=== PATIENT | male | born 1960 | race Two or more races ===

== ENCOUNTER 2024-01-02 14:16 | Inpatient (IN) | payer OTHER, MEDICAID ==
[~2024-01-02] VITALS: Ht 170.2 cm; Wt 61.6 kg
[2024-01-02] VITALS (24 sets, daily range): BP systolic 71–105; BP diastolic 34–66; PULSE 15–126; RESP 11–28; TEMP 93.3–95.2; O2SAT 94–100
[2024-01-02] MEDS ORDERED: EPINEPHrine HCL 1 MG/10 ML SYRG ONE (14:21)
[2024-01-02] MEDS ORDERED: NOREPINEPHRINE 8 MG/250ML KIT 250 ML IV ONE (14:22)
[2024-01-02] MEDS: SODIUM BICARB 8.4% 50Meq/50ml SYR INJ ONE (14:42)
[2024-01-02] MEDS: PANTOPRAZOLE 40 MG/10 ML VIAL INJ IV ONE (14:45)
[2024-01-02] MEDS: SODIUM BICARB 8.4% 50Meq/50ml SYR Vial IV ONE ×3 (14:56→21:04)
[2024-01-02] MEDS: NOREPINEPHRINE 8 MG/250ML KIT 250 ML IV SCH ×2 (15:00→21:00)
[2024-01-02 15:02] LABS: Basophils # (auto) 0 10 ^3/uL (0-0.2); Basophils % (auto) 0.1 % (0.0-2.0); Eosinophils # (auto) 0 10 ^3/uL (0-0.8); Eosinophils % (auto) 0.1 % (0.0-7.0); Nucleated Red Blood Cells % 0.1 %
[2024-01-02 15:03] LABS: Hematocrit 45.9 % (41.0-53.0); Hemoglobin 13.2 g/dL (13.5-17.5); Lymphocytes # (auto) 2.3 10 ^3/uL (0.4-5.4); Lymphocytes % (auto) 9.6 % (10.0-50.0); Mean Corpuscular Hemoglobin 30.8 pg (28.0-32.0); Mean Corpuscular Hgb Conc. 28.9 g/dL (32.0-36.0); Mean Corpuscular Volume 106.6 fL (80.0-100.0); Monocytes # (auto) 1.4 10 ^3/uL (0-1.3); Monocytes % (auto) 5.9 % (0.0-12.0); Neutrophils # (auto) 20.2 10 ^3/uL (1.6-8.6); Neutrophils % (auto) 84.3 % (37.0-80.0); Red Cell Distribution Width 15.4 % (11.8-14.3)
[2024-01-02] MEDS: ASPirin 325 MG TAB ONE (15:08)
[2024-01-02 15:12] LABS: Base Excess -20.3 mmol/L (-2.0-2.0)
[2024-01-02 15:12] LABS: Albumin 3.2 g/dL (3.2-4.8); Alkaline Phosphatase 167 U/L (46-116); Anion Gap 23 (5-15); BUN/Creatinine Ratio 27.6 (10.0-20.0); Blood Urea Nitrogen 64 mg/dL (9-23); Calcium 12.6 mg/dL (8.5-10.1); Carbon Dioxide 12 mmol/L (20-30); Chloride 100 mmol/L (98-107); Glucose 306 mg/dL (74-106); Potassium 5.5 mmol/L (3.5-5.1); Sodium 135 mmol/L (136-145); Total Protein 5.6 g/dL (5.7-8.2)
[2024-01-02 15:24] LABS: Aspartate Aminotransferase 3394 U/L (13-40)
[2024-01-02 15:27] LABS: Alanine Aminotransferase 1903 U/L (7-40)
[2024-01-02] MEDS: PHENYLEPHRINE IV 250 ML IV ONE (15:47)
[2024-01-02] MEDS: PHENYLEPHRINE IV 250 ML IV SCH ×2 (16:00→21:00)
[2024-01-02] MEDS: ASPirin 325 MG TAB NG ONE (16:00)
[2024-01-02] MEDS ORDERED: DOCUSATE SOD 100 MG CAP PO PRN (16:30)
[2024-01-02] MEDS ORDERED: SODIUM CHLORIDE 0.9% 1,000 ML IV SCH (16:30)
[2024-01-02] MEDS ORDERED: DEXTROSE (50%) 50ML SYRG IV PRN (16:30)
[2024-01-02] MEDS ORDERED: VANCOMYCIN PER PHARMACY 0 MG IV SCH (16:30)
[2024-01-02] MEDS ORDERED: ONDANSETRON HCL 4 MG/2 ML VIAL IV PRN (16:30)
[2024-01-02] MEDS: CEFEPIME 2GM/50ML NS 50 ML IV ONE (16:30)
[2024-01-02 16:34] LABS: INR 1.79 (0.9-1.15); Partial Thromboplastin Time 52.5 SEC (24.5-34.5); Prothrombin Time 18.2 sec (9.3-11.8)
[2024-01-02] MEDS: fentaNYL Drip 2500mCg/250mlNS 250 ML IV ONE (17:27)
[2024-01-02] MEDS: ACCU-CHEK COMFORT CURVE STRIP VI SCH (18:00)
[2024-01-02] MEDS: InsuLIN REG 1unit/0.01ml Soln (100units/ml) SC SCH (18:00)
[2024-01-02] MEDS: IODIXANOL 320MG/ML 100ML BTL IV ONE (18:12)
[2024-01-02 18:17] LABS: Lactic Acid w/Reflex 19.6 mmol/L (0.4-2.0)
[2024-01-02] MEDS: NOREPINEPHRINE 8 MG/250ML KIT 250 ML IV ONE (19:19)
[2024-01-02 19:20] LABS: Base Excess -23.8 mmol/L (-2.0-2.0)
[2024-01-02] MEDS: EPINEPHrine HCL 250 ML IV ONE (20:08)
[2024-01-02] MEDS: VASOPRESSIN 20 UNITS in SODIUM CHL 0.9% 99 ML IV SCH (21:00)
[2024-01-02] MEDS: fentaNYL Drip 2500mCg/250mlNS 250 ML IV SCH (21:00)
[2024-01-02] MEDS: VANCOMYCIN 1GM/200ML 200 ML IV ONE (21:02)
[2024-01-02] MEDS: SODIUM BICARB 50mEq/50ml Vial 150 ML in SOD CHL 0.45% 1,000 ML IV SCH ×2 (21:04→23:45)
[2024-01-02 22:33] LABS: Base Excess -23.1 mmol/L (-2.0-2.0)
[2024-01-02] MEDS: CEFEPIME 2GM/50ML NS 50 ML IV SCH (23:18)
[2024-01-03] VITALS (80 sets, daily range): BP systolic 61–120; BP diastolic 29–47; PULSE 70–95; RESP 10–36; TEMP 88.5–99.7; O2SAT 89–100
[2024-01-03] MEDS: DOPamine 1600MCG/ML D5W 250 ML IV SCH (00:04)
[2024-01-03] MEDS: SODIUM BICARB 8.4% 50Meq/50ml SYR Vial IV ONE ×2 (00:04→05:42)
[2024-01-03] MEDS: DOPamine 1600MCG/ML D5W 250 ML IV ONE (00:04)
[2024-01-03 00:39] LABS: Albumin 2.6 g/dL (3.2-4.8); Alkaline Phosphatase 317 U/L (46-116); Anion Gap 33.00001 (5-15); BUN/Creatinine Ratio 22.9 (10.0-20.0); Blood Urea Nitrogen 68 mg/dL (9-23); Chloride 103 mmol/L (98-107); Glucose 400 mg/dL (74-106); Potassium 3.7 mmol/L (3.5-5.1)
[2024-01-03 00:40] LABS: Bilirubin, Total 2.1 mg/dL (0.2-1.0); Total Protein 4.9 g/dL (5.7-8.2)
[2024-01-03 00:51] LABS: Aspartate Aminotransferase 5989 U/L (13-40)
[2024-01-03 00:59] LABS: Alanine Aminotransferase 2634 U/L (7-40); Carbon Dioxide < 10 mmol/L (20-30); Sodium 146 mmol/L (136-145)
[2024-01-03] MEDS: EPINEPHrine HCL 250 ML IV SCH (01:15)
[2024-01-03 01:22] LABS: Mean Corpuscular Volume 104.2 fL (80.0-100.0)
[2024-01-03 01:23] LABS: Hematocrit 41.7 % (41.0-53.0); Hemoglobin 12.6 g/dL (13.5-17.5); Mean Corpuscular Hemoglobin 31.3 pg (28.0-32.0); Mean Corpuscular Hgb Conc. 30.1 g/dL (32.0-36.0); Red Blood Cells 4.01 10^6/uL (4.5-5.90); Red Cell Distribution Width 15.1 % (11.8-14.3); White Blood Cell 7.3 10^3/uL (4.4-10.8)
[2024-01-03 01:26] LABS: Basophils % (manual) 0 (0.0-2.0); Blast Cells 0; Eosinophils % (manual) 0 (0-7); Promyelocytes % 0; Reactive Lymphocytes 0
[2024-01-03 02:11] LABS: Band Neutrophils % (manual) 37; Lymphocytes % (manual) 6 (10.0-50.0); Metamyelocytes % 7; Monocytes % (manual) 8 (0-12); Myelocytes % 5; Platelet Estimate Decreased; Smudge Cells 1 /100 WBC
[2024-01-03 02:25] LABS: Base Excess -19.1 mmol/L (-2.0-2.0)
[2024-01-03 03:53] LABS: Basophils # (auto) 0 10 ^3/uL (0-0.2); Basophils % (auto) 0.1 % (0.0-2.0); Monocytes # (auto) 0.1 10 ^3/uL (0-1.3)
[2024-01-03 03:57] LABS: Eosinophils # (auto) 2.7 10 ^3/uL (0-0.8); Eosinophils % (auto) 34.4 % (0.0-7.0); Hematocrit 40.9 % (41.0-53.0); Hemoglobin 12.5 g/dL (13.5-17.5); Lymphocytes # (auto) 0.3 10 ^3/uL (0.4-5.4); Lymphocytes % (auto) 4.3 % (10.0-50.0); Mean Corpuscular Hemoglobin 31.5 pg (28.0-32.0); Mean Corpuscular Hgb Conc. 30.6 g/dL (32.0-36.0); Mean Corpuscular Volume 103.3 fL (80.0-100.0); Neutrophils # (auto) 4.8 10 ^3/uL (1.6-8.6); Neutrophils % (auto) 60.2 % (37.0-80.0); Nucleated Red Blood Cells % 0.2 %; Red Blood Cells 3.96 10^6/uL (4.5-5.90); Red Cell Distribution Width 15.1 % (11.8-14.3)
[2024-01-03 04:09] LABS: Albumin 2.4 g/dL (3.2-4.8); Alkaline Phosphatase 341 U/L (46-116); Anion Gap 32 (5-15); BUN/Creatinine Ratio 19.6 (10.0-20.0); Bilirubin, Total 1.9 mg/dL (0.2-1.0); Blood Urea Nitrogen 64 mg/dL (9-23); Calcium 9.5 mg/dL (8.7-10.4); Carbon Dioxide 11 mmol/L (20-30); Chloride 103 mmol/L (98-107); Potassium 3.1 mmol/L (3.5-5.1); Sodium 146 mmol/L (136-145); Total Protein 4.7 g/dL (5.7-8.2)
[2024-01-03 04:33] LABS: Glucose 423 mg/dL (74-106)
[2024-01-03 04:34] LABS: Alanine Aminotransferase 2612 U/L (7-40)
[2024-01-03] MEDS: SODIUM BICARB 50mEq/50ml Vial 150 ML in SOD CHL 0.45% 1,000 ML IV SCH (05:30)
[2024-01-03 06:02] LABS: Aspartate Aminotransferase > 6000 U/L (13-40)
[2024-01-03] MEDS: NOREPINEPHRINE BITARTRATE 32 MG in SODIUM CHL 0.9% 218 ML IV SCH (10:30)
[2024-01-03] MEDS: EPINEPHrine HCL INJECTION 16 MG in D5W 5% 234 ML IV SCH (10:30)
[2024-01-03] MEDS: POTASSIUM CHL 20MEQ/100ML 100 ML IV SCH (11:28)
[2024-01-03] MEDS: PHENYLEPHRINE INJ 80 MG in SODIUM CHL 0.9% 242 ML IV SCH (11:39)
[2024-01-03] MEDS: DOPamine 3200MCG/ML 250 ML IV SCH (12:28)
[2024-01-03] MEDS: VANCOMYCIN 1GM/200ML 200 ML IV ONE (12:31)
[2024-01-03] MEDS ORDERED: PANTOPRAZOLE 40 MG/10 ML VIAL INJ IV ONE (16:00)
[2024-01-03] MEDS ORDERED: SODIUM BICARB 50mEq/50ml Vial 150 ML in D5W 5% 1,000 ML IV SCH (16:30)
[2024-01-03] MEDS ORDERED: FUROSEMIDE INJECTION 100 MG in SODIUM CHL 0.9% 100 ML IV SCH (16:30)
[2024-01-03 16:54] LABS: Urine Bacteria None Seen /hpf (None Seen)
[2024-01-03 17:03] LABS: Urine Blood 3+ /uL (Negative); Urine Clarity Turbid (Clear); Urine Color Light-Orange (Yellow); Urine Mucus FEW (None Seen); Urine Protein, UAD 2+ (Negative); Urine Specific Gravity 1.022 (1.001-1.035); Urine Urobilinogen Normal (Negative); Urine WBC 85 /hpf (0 - 3); Urine pH 5.5 (5.0-9.0)
[2024-01-03] MEDS ORDERED: EPINEPHrine HCL 1 MG/10 ML SYRG IV ONE (22:06)
[2024-01-04] MEDS ORDERED: PANTOPRAZOLE 40 MG/10 ML VIAL INJ IV SCH (10:00)
[2024-01-04] MEDS ORDERED: CEFEPIME 2GM/50ML NS 50 ML IV SCH (10:00)
== END 2024-01-03 17:41 | DRG 871 ==
LOC: EDBD 14:16 → ER 14:16 → TELE 17:25 → EDBD 17:25 → ICU WEST 21:28
PROVIDERS: ADMIT Nurse Practitioner Family; ATTEND Internal Medicine Geriatric Medicine
PROC: 5A12012 Performance of Cardiac Output, Single, Manual (ICD-10-PCS; principal; 2024-01-02)
PROC: 0BH17EZ Insertion of Endotracheal Airway into Trachea, Via Natural or Artificial Opening (ICD-10-PCS; 2024-01-02)
PROC: 5A1935Z Respiratory Ventilation, Less than 24 Consecutive Hours (ICD-10-PCS; 2024-01-02)
PROC: 5A1223Z Performance of Cardiac Pacing, Continuous (ICD-10-PCS; 2024-01-02)
DX: A41.9 Sepsis, unspecified organism (principal); G93.41 Metabolic encephalopathy; I21.4 Non-ST elevation (NSTEMI) myocardial infarction; J18.9 Pneumonia, unspecified organism; K72.00 Acute and subacute hepatic failure without coma; N18.6 End stage renal disease; J96.01 Acute respiratory failure with hypoxia; R65.21 Severe sepsis with septic shock; N17.0 Acute kidney failure with tubular necrosis; I44.2 Atrioventricular block, complete; K92.2 Gastrointestinal hemorrhage, unspecified; I12.0 Hypertensive chronic kidney disease with stage 5 chronic kidney disease or end stage renal disease; Z99.11 Dependence on respirator [ventilator] status; E87.4 Mixed disorder of acid-base balance; D68.9 Coagulation defect, unspecified; N39.0 Urinary tract infection, site not specified; G93.1 Anoxic brain damage, not elsewhere classified; E87.1 Hypo-osmolality and hyponatremia; Z94.0 Kidney transplant status; I47.20 Ventricular tachycardia, unspecified; I46.9 Cardiac arrest, cause unspecified; R74.01 Elevation of levels of liver transaminase levels; Z66 Do not resuscitate; E87.5 Hyperkalemia; D69.59 Other secondary thrombocytopenia; I25.10 Atherosclerotic heart disease of native coronary artery without angina pectoris; E11.22 Type 2 diabetes mellitus with diabetic chronic kidney disease; E78.5 Hyperlipidemia, unspecified; E87.6 Hypokalemia; E11.65 Type 2 diabetes mellitus with hyperglycemia; Z79.4 Long term (current) use of insulin; Z95.1 Presence of aortocoronary bypass graft
CPT/HCPCS: 36415; 36600; 71045; 76705; 80053; 80202; 81001; 82010; 82805; 82962; 83036; 83605; 83735; 83880; 84100; 84484; 85007; 85025; 85027; 85610; 85730; 86850; 86900; 86901; 87040; 87070; 87077; 87081; 87086; 87186; 87205; 92950; 93005; 93306; 94003; 96365; 99152; 99291; G0378; J0171; J0692; J1265; J1815; J3480; J7060; Q9967